=== PATIENT | female | born 1960 | race Caucasian/White ===

== ENCOUNTER 2023-08-12 18:32 | Observation (INO) | payer OTHER ==
[2023-08-12 19:05] LABS: BASOPHILS # (AUTO) 0.1 10^3/uL (0.0-0.1); BASOPHILS % (AUTO) 0.5 %; EOSINOPHILS % (AUTO) 0.3 %; HCT - HEMATOCRIT 41.6 % (37.0-47.0); HGB - HEMOGLOBIN 13.5 g/dL (12.0-16.0); LYMPHOCYTES # (AUTO) 1.4 10^3/uL (1.5-3.5); LYMPHOCYTES % (AUTO) 10.1 %; MEAN CORPUSCULAR HEMOGLOBIN 29.3 pg (27.0-31.0); MEAN CORPUSCULAR HGB CONC 32.5 g/dL (32.0-36.0); MEAN CORPUSCULAR VOLUME 90.2 fL (81.0-99.0); MEAN PLATELET VOLUME 9.4 fL (7.9-10.8); MONOCYTES # (AUTO) 0.6 10^3/uL (0.0-1.0); MONOCYTES % (AUTO) 4.6 %; NEUTROPHILS # (AUTO) 11.4 10^3/uL (1.5-6.6); NEUTROPHILS % (AUTO) 84.1 %; PLT - PLATELET COUNT 281 10^3/uL (130-450); RED BLOOD COUNT 4.61 10^6/uL (4.20-5.40); RED CELL DISTRIBUTION WIDTH 13.5 % (12.0-15.0); WHITE BLOOD COUNT 13.6 x10^3/uL (4.8-10.8)
[2023-08-12 19:23] LABS: ALBUMIN 4.4 g/dL (3.2-5.5); ALBUMIN/GLOBULIN RATIO 1.7 (1.0-2.2); BILIRUBIN,TOTAL 0.6 mg/dL (0.2-1.0); CALCIUM 9.6 mg/dL (8.5-10.3); CREATININE 0.8 mg/dL (0.6-1.3); MAGNESIUM 1.5 mg/dL (1.7-2.3); POTASSIUM 3.7 mmol/L (3.5-4.5)
[2023-08-12] MEDS ORDERED: iohexoL-300 100 ML VIAL ONE (19:31)
[2023-08-12] MEDS: HYDROmorphone 0.5 MG/0.5 ML SYRINGE IVP STA (19:32)
[2023-08-12] MEDS: SODIUM CHLORIDE 0.9% 1,000 ML IV ONE (19:32)
[2023-08-12] MEDS: ONDANSETRON 4 MG/2 ML VIAL IVP STA (19:43)
[2023-08-12] MEDS: iohexoL-300 100 ML VIAL IVP ONE (20:41)
--- NOTE | 2023-08-12 21:55 | CT Report ---
PROCEDURE: Abdomen/Pelvis W INDICATIONS: colon polyp and right ovarian cyst removal 07/11 CONTRAST: 100 ML OMNI 300 TECHNIQUE: After the administration of intravenous contrast, a CT scan of the abdomen and pelvis was performed. Images were recorded and evaluated at appropriate window settings. Reformats: coronal and sagittal. F or radiation dose reduction, the following was used: automated exposure control, adjustment of mA and /or kV according to patient size. COMPARISON: None. FINDINGS: Image quality: Diagnostic. Lower chest: Unremarkable. Liver: No solid mass. Gallbladder: Normal. Biliary tree: No intrahepatic or extrahepatic dilation, accounting for age. Spleen: No splenomegaly. Pancreas: No pancreatic ductal dilation. Adrenals: No adrenal nodule. Kidneys and ureters: No hydronephrosis. No renal cystic lesion which requires follow up. No solid mas s. Stomach, bowel and peritoneum: No gastric or small bowel dilation. No abnormal wall thickening. No pa thologic free fluid. Lymph nodes: No central or retroperitoneal adenopathy. Vessels: No infrarenal aortic aneurysm. Patent portal vein. PELVIS Reproductive organs: Unremarkable. Bladder: No abnormal wall thickening, accounting for underdistention. Pelvic lymph nodes: No pelvic adenopathy by size criteria. Bones: No aggressive osseous abnormality. Other: No significant ventral or inguinal hernia. Moderate inflammation adjacent to the appendix whic h appears also inflamed, but no periappendiceal abscess is found. IMPRESSION: Acute appendicitis without periappendiceal abscess at the right lower quadrant. Findings immediately called to the emergency room physician caring for the patient. Reviewed by: Geoffrey Ordaz MD on 08/12/2023 9:53 PM PDT Approved by: Geoffrey Ordaz MD on 08/12/2023 9:53 PM PDT Station ID: [id number]
--- NOTE | 2023-08-12 22:12 | ED Physician Documentation ---
PD HPI ABD PAIN - Stated complaint Stated Complaint: ABD PX - Chief complaint Chief Complaint: Abd Pain - Treatment prior to arrival Treatment prior to arrival: 62-year-old female presents emergency department for generalized abdominal pain. Patient recently had surgery about a month ago for a colon polyp that was removed vaginally As well as A right ovarian cyst removal. She said overall she has been doing quite well since surgery she has had no complications and today started experiencing sudden onset abdominal pain nausea vomiting. Prior to today she has been feeling overall well no fevers or chills that she is aware of. No dysuria no CVA tenderness. 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: Other - Allergies Allergies/Adverse Reactions: Allergies Allergy/AdvReac Type Severity Reaction Status Date / Time No Known Drug Allergies Allergy Verified 08/12/23 18:35 - Social History Does the pt smoke?: No Smoking Status: Never smoker Does the pt drink ETOH?: No Does the pt have substance abuse?: No - Immunizations Immunizations are current?: Yes - POLST Patient has POLST: No PD ED PE NORMAL - Vitals Vital signs reviewed: Yes - General General: Alert and oriented X 3, No acute distress, Well developed/nourished - Cardiac Cardiac: RRR - Respiratory Respiratory: No respiratory distress, Clear bilaterally - Abdomen Abdomen: Normal bowel sounds, Soft, Non distended, Other (Right upper quadrant tenderness) - Derm Derm: Normal color, Warm and dry, No rash - Extremities Extremities: No edema - Neuro Neuro: Alert and oriented X 3, picker packer 2-12 intact, No motor deficit, No sensory deficit, Normal speech - Psych Psych: Normal mood, Normal affect Results - Vitals Vitals: Vital Signs - 24 hr 08/12/23 08/12/23 08/12/23 18:35 19:15 19:33 Temperature 36.5 C 36 C L Heart Rate 60 65 64 Respiratory 16 15 16 Rate Blood Pressure 134/57 H 130/64 134/74 H O2 Saturation 99 99 100 08/12/23 21:50 Temperature Heart Rate 75 Respiratory 16 Rate Blood Pressure 132/71 H O2 Saturation 92 Oxygen O2 Source Room air - Labs Labs: Laboratory Tests 08/12/23 08/12/23 19:00 19:00 WBC 13.6 H RBC 4.61 Hgb 13.5 Hct 41.6 MCV 90.2 MCH 29.3 MCHC 32.5 RDW 13.5 Plt Count 281 MPV 9.4 Neut # (Auto) 11.4 H Lymph # (Auto) 1.4 L Jenkins # (Auto) 0.6 Eos # (Auto) 0.0 Baso # (Auto) 0.1 Absolute Nucleated RBC 0.00 Nucleated RBC % 0.0 Sodium 137 Potassium 3.7 Chloride 103 Carbon Dioxide 23 Anion Gap 11.0 BUN 19 Creatinine 0.8 Estimated GFR (MDRD) 72 L Glucose 124 H Calcium 9.6 Magnesium 1.5 L Total Bilirubin 0.6 AST 18 ALT 25 Alkaline Phosphatase 77 Total Protein 7.0 Albumin 4.4 Globulin 2.6 Albumin/Globulin Ratio 1.7 Lipase 15 - Rads (name of study) CT abdomen pelvis with contrast Relevant Findings:: Final report received, EMP independent interpretation of test, Other (Acute appendicitis without periappendiceal abscess at the right lower quadrant.) PD Medical Decision Making - ED course ED course: 62-year-old female presents emergency department for generalized abdominal pain and discomfort with nausea and vomiting. Labs are complete for further evaluation and she does have mild leukocytosis, 13.6 no electrolyte abnormalities normal kidney function with mildly suppressed magnesium at 1.5 replaced with [address] oxide. [address] abdomen pelvis was complete for further evaluation and she was found to have an acute appendicitis without periappendiceal abscess. Patient is here visiting from [place] and she said that she would like to do everything possible to avoid surgery if possible. We have started her on some Flagyl and ceftriaxone for a keep in a status I called Dr. Ridley our general surgeon who agrees that we could try to start patient on IV antibiotics overnight to see how patient does and discuss pros and cons of doing surgery or waiting on surgery tomorrow with the patient. Plan is to see how she does overnight with the antibiotics. Patient lives in [place] and said that she would love to hold off on surgery until she is able to get back to [place] on Monday or Monday but understands that if surgery needs to happen she is willing to do so. Pain was well-controlled with one-time dose of 0.5 mg Dilaudid nausea controlled with 4 mg IV Zofran. She was given 1 L of IV fluids. Report given to oncoming ER physician due to change of shift who will speak with telehospitalist Departure - Departure Disposition: 65 [facility] DC/Xfer Clinical Impression: Appendicitis, acute Forms: PCP List
[2023-08-12] MEDS ORDERED: cefTRIAXone 1 GM VIAL ONE (22:37)
[2023-08-12] MEDS: MAGNESIUM OXIDE 400 MG TABLET PO STA (22:40)
[2023-08-12] MEDS: cefTRIAXone 1 GM in SODIUM CHLORIDE 0.9% MINIBAG 100 ML IV STA (22:42)
[2023-08-12] MEDS: metroNIDAZOLE 500 MG/100 ML 500 MG/100 ML BAG IV ONE (22:42)
[2023-08-12] MEDS ORDERED: metroNIDAZOLE 500 MG/100 ML 500 MG/100 ML BAG IV SCH (23:00)
--- NOTE | 2023-08-13 01:42 | ED Physician Documentation ---
ED Addendum - Addendum Addendum: 08/13/23 01:42 Patient received a signout from outgoing CHRISTO. Please see their documentation for further detail. Care was discussed with the telemetry hospitalist service. Patient monitored carefully throughout the majority of my shift with no new or worsening symptoms. Admitted to hospital service without issue.
--- NOTE | 2023-08-13 02:25 | HISTORY & PHYSICAL EXAMINATION ---
Chief Complaint - Chief Complaint Chief Complaint: abd pain History of Present Illness - Admitted From Admitted From:: home - History Obtained From History obtained from: patient Exam Limitations: telemedicine - History of Present Illness HPI Comment/Other: Ms [place] is a 62 yo F with hx HTN. Presents to ER with c/o abd pain. Onset of pain ~1 PM, 10/10 intensity, had nausea after receiving dilaudid in ER. Pain is now well controlled, denies any ongoing nausea. Found to have appendicitis - she is hoping to defer surgery to when she goes back to [place], but plans to discuss further with surgeon. Denies fevers, chills, chest pain, shortness of breath. 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: Ovarian cysts MRSA Hx?: No - Past Surgical History /CONCESSION STAND ATTENDANT: reports: Other - POLST Patient has POLST: No Meds/Allgy - Home Medications Home Medications: Ambulatory Orders Medication Instructions Recorded Confirmed Progesterone, Micronized 100 mg PO QPM 08/12/23 08/12/23 [Prometrium] - Allergies Allergies/Adverse Reactions: Allergies Allergy/AdvReac Type Severity Reaction Status Date / Time No Known Drug Allergies Allergy Verified 08/12/23 18:35 Review of Systems - Constitutional Constitutional: denies: Fatigue, Fever, Chills, Malaise - Cardiovascular Cariovascular: denies: Chest pain - Respiratory Respiratory: denies: Cough, SOB at rest - Gastrointestinal Gastrointestinal: reports: Abdominal pain, Nausea. denies: Abdominal distention, Vomiting - Genitourinary Genitourinary: denies: Dysuria, Frequency - Integumentary Integumentary: denies: Rash - Neurological Neurological: denies: General weakness - All Other Systems All Other Systems: reports: Reviewed and negative Exam - Vital Signs Vital Signs: Vital Signs x48h Temp Pulse Resp BP Pulse Ox 08/12/23 23:00 36 C L 64 16 127/89 H 97 08/12/23 21:50 75 16 132/71 H 92 08/12/23 19:33 36 C L 64 16 134/74 H 100 08/12/23 19:15 65 15 130/64 99 08/12/23 18:35 36.5 C 60 16 134/57 H 99 Conclusion/Plan - Lab Results Lab results reviewed: Yes Fish Bones: 08/12/23 19:00 08/12/23 19:00 - Diagnostic Imaging Results Diagnostic Imaging Results: positive: Final report reviewed - Other Other Results/Comments: Assessment/Plan: Acute appendicitis -Mild leukocytosis, afebrile -No evidence of abscess on imaging -Continue IV antibiotics Ceftriaxone + Flagyl -NPO -IV fluids -Genearl surgery consultation pending HTN -Patient reports she was taken off of lisinopril a few weeks ago by her PCP because her blood pressures have been well controlled -Continue to monitor Full code DVT ppx SCDs
[2023-08-13] MEDS ORDERED: ONDANSETRON 4 MG/2 ML VIAL IVP PRN ×2 (02:28→12:33)
[2023-08-13] MEDS ORDERED: HYDROmorphone 0.5 MG/0.5 ML SYRINGE IVP PRN ×2 (02:28→12:33)
[2023-08-13] MEDS: SODIUM CHLORIDE 0.9% 1,000 ML IV SCH (03:49)
[2023-08-13] MEDS: SODIUM CHLORIDE FLUSH 0.9% 10 ML SYRINGE IVP PRN (03:51)
[2023-08-13] MEDS: metroNIDAZOLE 500 MG/100 ML 500 MG/100 ML BAG IV SCH (06:12)
[2023-08-13 09:56] LABS: HCT - HEMATOCRIT 37.4 % (37.0-47.0); HGB - HEMOGLOBIN 12.2 g/dL (12.0-16.0); MEAN CORPUSCULAR HEMOGLOBIN 29.6 pg (27.0-31.0); MEAN CORPUSCULAR HGB CONC 32.6 g/dL (32.0-36.0); MEAN CORPUSCULAR VOLUME 90.8 fL (81.0-99.0); MEAN PLATELET VOLUME 9.6 fL (7.9-10.8); RED BLOOD COUNT 4.12 10^6/uL (4.20-5.40); RED CELL DISTRIBUTION WIDTH 13.7 % (12.0-15.0); WHITE BLOOD COUNT 10.4 x10^3/uL (4.8-10.8)
[2023-08-13] MEDS: SODIUM CHLORIDE FLUSH 0.9% 10 ML SYRINGE IVP SCH (10:26)
--- NOTE | 2023-08-13 11:37 | HISTORY & PHYSICAL EXAMINATION ---
HPI - Admitted From Admitted from: ED - History Obtained From History obtained from: Patient - History of Present Illness HPI Comment/Other: 62yoF visiting from out of town, onset at 1pm yesterday of abdominal pain, initially felt to be GI upset, but persisted and migrated to the RLQ. Mild nausea, no emesis. Initially was opposed to having surgery here given she was from out of town, and so she was admitted for abx mgmt. She has remained HD normal, WBC has downtrended from 13 to 10, Pain has improved somewhat but not resolved. NPO since prior to admission to hospital. 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 - Social History Does the pt smoke?: No Smoking Status: Never smoker Does the pt drink ETOH?: No Does the pt have substance abuse?: No - POLST Patient has POLST: No Meds/Allgy - Home Medications Home Medications: Ambulatory Orders Medication Instructions Recorded Confirmed Progesterone, Micronized 100 mg PO QPM 08/12/23 08/12/23 [Prometrium] Lisinopril [Zestril] 10 mg PO DAILY 08/13/23 08/13/23 Rosuvastatin Calcium 5 mg PO DAILY 08/13/23 08/13/23 - Allergies Allergies/Adverse Reactions: Allergies Allergy/AdvReac Type Severity Reaction Status Date / Time No Known Drug Allergies Allergy Verified 08/12/23 18:35 Review of Systems - Gastrointestinal Gastrointestinal: reports: Abdominal pain, Nausea. denies: Vomiting Exam - Vital Signs Reviewed Vital Signs: Yes Vital Signs: Vital Signs x48h Temp Pulse Resp BP Pulse Ox 08/13/23 07:45 36.7 C 73 18 123/75 96 08/13/23 03:41 36.5 C 71 18 135/74 H 97 - Physical Exam General Appearance: positive: No acute distress, Alert Eyes Bilateral: positive: Normal inspection, PERRL ENT: positive: ENT inspection nml, Pharynx nml, No signs of dehydration Neck: positive: Nml inspection, Thyroid nml, No JVD, Trachea midline Respiratory: positive: Chest non-tender, No respiratory distress, Breath sounds nml Cardiovascular: positive: Regular rate & rhythm, No murmur, No gallop Peripheral Pulses: positive: 2+ Abdomen: positive: No distention, Tenderness (Focal RLQ ttp, negative rosvings sign). negative: Guarding, Rebound Back: positive: Nml inspection Skin: positive: Color nml, No rash, Warm, Dry Extremities: positive: Non-tender, Full ROM, Nml appearance Neurologic/Psychiatric: positive: Oriented x3, Mood/affect nml Results - Lab Results Lab results reviewed: Yes Fish Bones: 08/13/23 09:47 08/12/23 19:00 Other Lab Results: Lab Results x24hrs 08/13/23 08/12/23 08/12/23 Range/Units 09:47 19:00 19:00 WBC 10.4 13.6 H (4.8-10.8) x10^3/uL RBC 4.12 L 4.61 (4.20-5.40) 10^6/uL Hgb 12.2 13.5 (12.0-16.0) g/dL Hct 37.4 41.6 (37.0-47.0) % MCV 90.8 90.2 (81.0-99.0) fL MCH 29.6 29.3 (27.0-31.0) pg MCHC 32.6 32.5 (32.0-36.0) g/dL RDW 13.7 13.5 (12.0-15.0) % Plt Count 270 281 (130-450) 10^3/uL MPV 9.6 9.4 (7.9-10.8) fL Neut # (Auto) 11.4 H (1.5-6.6) 10^3/uL Lymph # (Auto) 1.4 L (1.5-3.5) 10^3/uL [place] # (Auto) 0.6 (0.0-1.0) 10^3/uL Eos # (Auto) 0.0 (0.0-0.7) 10^3/uL Baso # (Auto) 0.1 (0.0-0.1) 10^3/uL Absolute Nucleated RBC 0.00 x10^3/uL Nucleated RBC % 0.0 /100WBC Sodium 137 (135-145) mmol/L Potassium 3.7 (3.5-4.5) mmol/L Chloride 103 (101-111) mmol/L Carbon Dioxide 23 (21-32) mmol/L Anion Gap 11.0 (6-13) BUN 19 (6-20) mg/dL Creatinine 0.8 (0.6-1.3) mg/dL Estimated GFR (MDRD) 72 L (>89) Glucose 124 H (74-104) mg/dL Calcium 9.6 (8.5-10.3) mg/dL Magnesium 1.5 L (1.7-2.3) mg/dL Total Bilirubin 0.6 (0.2-1.0) mg/dL AST 18 (10-42) IU/L ALT 25 (10-60) IU/L Alkaline Phosphatase 77 (42-121) IU/L Total Protein 7.0 (6.4-8.9) g/dL Albumin 4.4 (3.2-5.5) g/dL Globulin 2.6 (2.1-4.2) g/dL Albumin/Globulin Ratio 1.7 (1.0-2.2) Lipase 15 (11-82) U/L - Diagnostic Imaging Results Diagnostic Imaging Results: positive: Read contemporaneously Diagnostic Imaging Results Comments: CT abd/pel c/w acute nonperforated appendicitis. Impression/Plan - Problem List Problem List: 62yoF with acute appendicitis. Initially admitted for abx management per patient preference as she is from out of town - was initially, and remains, HD normal and afebrile. WIth abx mgmt and pain control her WBC has gone down from 13 to 10 and pain is improved but not resolved. Discussed nature of disease, options for management with abx vs surgery and the risk of recurrence with abx along and the risks of surgery (pain, bleeding, infection/abscess, bowel resection, open surgery, need for further procedures). She understands and now desires to proceed with surgical management. To OR now for laparoscopic appendectomy Anticipate DC home tomorrow, and ability to fly home on Monday with PCM post-op follow up. Dai Ridley DO FACS General Surgeon
[2023-08-13] MEDS ORDERED: BUPIVACAINE 0.25% PF 30 ML VIAL ONE (12:14)
[2023-08-13] MEDS ORDERED: LIDOCAINE 1%-EPI 1:100000 20 ML MDV ONE (12:26)
[2023-08-13] MEDS ORDERED: ROCURONIUM 50 MG/5 ML VIAL ONE ×2 (12:28→13:39)
[2023-08-13] MEDS ORDERED: ONDANSETRON 4 MG/2 ML VIAL ONE (12:28)
[2023-08-13] MEDS ORDERED: MIDAZOLAM 2 MG/2 ML VIAL ONE (12:28)
[2023-08-13] MEDS ORDERED: fentaNYL 100 MCG/2 ML VIAL ONE ×2 (12:28→14:17)
[2023-08-13] MEDS ORDERED: KETOROLAC 30 MG/ML VIAL ONE (12:28)
[2023-08-13] MEDS ORDERED: LIDOCAINE-PF 2% 10 ML AMP SUBQ ONE (12:28)
[2023-08-13] MEDS ORDERED: PROPOFOL 200 MG/20 ML VIAL IVP ONE (12:28)
[2023-08-13] MEDS ORDERED: ePHEDrine 50 MG/ML VIAL IVP PRN (12:33)
[2023-08-13] MEDS ORDERED: MORPHINE 2 MG/ML CARPUJECT IVP PRN (12:33)
[2023-08-13] MEDS ORDERED: NALOXONE 0.4 MG/ML VIAL IVP PRN (12:33)
[2023-08-13] MEDS ORDERED: METOCLOPRAMIDE 10 MG/2 ML VIAL IVP PRN (12:33)
[2023-08-13] MEDS ORDERED: ATROPINE ABBOJECT 1 MG/10 ML SYRINGE IVP PRN (12:33)
--- NOTE | 2023-08-13 12:33 | ANESTHESIA ---
Pre-Anesthesia VS, & Labs - Diagnosis appendicitis - Procedure lap appy Vital Signs: Temp Pulse Resp BP Pulse Ox O2 Flow Rate 37 C 70 20 147/79 H 94 08/13/23 12:18 08/13/23 12:18 08/13/23 12:18 08/13/23 12:18 08/13/23 12:18 Height: 5 ft 4 in Weight (kg): 81.5 kg Body Mass Index: 30.8 BMI Classification: Obese - NPO >8 hours - Is Patient ?: No - Lab Results Current Lab Results: Laboratory Tests 08/13/23 09:47: WBC 10.4, RBC 4.12 L, Hgb 12.2, Hct 37.4, MCV 90.8, MCH 29.6, MCHC 32.6, RDW 13.7, Plt Count 270, MPV 9.6 08/12/23 19:00: Sodium 137, Potassium 3.7, Chloride 103, Carbon Dioxide 23, Anion Gap 11.0, BUN 19, Creatinine 0.8, Estimated GFR (MDRD) 72 L, Glucose 124 H , Calcium 9.6, Magnesium 1.5 L, Total Bilirubin 0.6, AST 18, ALT 25, Alkaline Phosphatase 77, Total Protein 7.0, Albumin 4.4, Globulin 2.6, Albumin/Globulin Ratio 1.7, Lipase 15 08/12/23 19:00: WBC 13.6 H, RBC 4.61, Hgb 13.5, Hct 41.6, MCV 90.2, MCH 29.3, MCHC 32.5, RDW 13.5, Plt Count 281, MPV 9.4, Neut # (Auto) 11.4 H, Lymph # (Auto) 1.4 L, [place] # (Auto) 0.6, Eos # (Auto) 0.0, Baso # (Auto) 0.1, Absolute Nucleated RBC 0.00, Nucleated RBC % 0.0 Fish Bones: 08/13/23 09:47 08/12/23 19:00 Home Medications and Allergies Home Medications: Ambulatory Orders Progesterone, Micronized [Prometrium] 100 mg PO QPM 08/12/23 Lisinopril [Zestril] 10 mg PO DAILY 08/13/23 Rosuvastatin Calcium 5 mg PO DAILY 08/13/23 Active Medications Hydromorphone HCl (Hydromorphone 0.5 Mg/0.5 Ml Syringe) 0.5 mg IVP Q2H PRN PRN Reason: Pain 8 to 10 Metronidazole (Flagyl 500 Mg/100 Ml) 500 mg in 100 mls @ 100 mls/hr IV Q8H [facility] Last Infusion: 08/13/23 07:15 Dose: Infused Sodium Chloride (Normal Saline 0.9%) 1,000 mls @ 100 mls/hr IV .Q10H [facility] Last Admin: 08/13/23 03:49 Dose: 100 mls/hr Ceftriaxone Sodium 1 gm/ (Sodium Chloride) 100 mls @ 200 mls/hr IV DAILY [facility] Ondansetron HCl (Ondansetron 4 Mg/2 Ml Vial) 4 mg IVP Q6HR PRN PRN Reason: Nausea / Vomiting Patient Own Med [ Prometrium 100 Mg Capsule] 1 each PO QPM [facility] Sodium Chloride (Sodium Chloride Flush 0.9% 10 Ml Syringe) 10 ml IVP PRN PRN PRN Reason: NEEDED PER PROVIDER ORDERS Last Admin: 08/13/23 03:51 Dose: 10 ml Sodium Chloride (Sodium Chloride Flush 0.9% 10 Ml Syringe) 10 ml IVP 0100,0900,1700 [facility] Last Admin: 08/13/23 10:26 Dose: Not Given Progesterone, Micronized [Prometrium] 100 mg PO QPM 08/12/23 Lisinopril [Zestril] 10 mg PO DAILY 08/13/23 Rosuvastatin Calcium 5 mg PO DAILY 08/13/23 Allergies/Adverse Reactions: Allergies Allergy/AdvReac Type Severity Reaction Status Date / Time No Known Drug Allergies Allergy Verified 08/12/23 18:35 Anes History & Medical History - Anesthetic History Anesthesia Complications: reports: No previous complications Family history of Anesthesia Complications: Denies Family history of Malignant Hyperthermia: Denies - Medical History Cardiovascular: reports: Hypertension, High cholesterol Pulmonary: reports: None Gastrointestinal: reports: None Urinary: reports: None Neuro: reports: None Musculoskeletal: reports: None Endocrine/Autoimmune: reports: None Blood Disorders: reports: None Skin: reports: None Smoking Status: Never smoker Psychosocial: reports: No issues indicated History of Cancer?: Yes (skin) - Surgical History Eyes Ears Nose Throat (EENT): reports: Cataracts Gynecologic: reports: Other (vaginal polyp and ovarian cyst(?) resected via vaginal approach) Dermatologic: reports: Skin cancer surgery (RIght anterior chest) Exam General: Alert, Oriented x3, Cooperative Dental: WNL Mouth Openin Fingerbreadth Neck Mobility: Normal Mallampati classification: II Thyromental Distance: 4-6 cm Respiratory: Lungs clear Cardiovascular: Regular rate Plan Anesthesia Type: General Consent for Procedure(s) Verified and Reviewed: Yes Code Status: Attempt Resuscitation ASA classification: 2-Mild systemic disease Is this case an emergency?: Yes
[2023-08-13] MEDS ORDERED: LACTATED RINGERS 1,000 ML IV SCH (13:00)
[2023-08-13] MEDS: LIDOCAINE 1%-EPI 1:100000 20 ML MDV SUBQ ONE ×2 (13:15)
[2023-08-13] MEDS: BUPIVACAINE 0.25% PF 30 ML VIAL SUBQ ONE ×2 (13:15)
[2023-08-13] MEDS ORDERED: GLYCOPYRROLATE 1 MG/5 ML VIAL ONE (13:25)
[2023-08-13] MEDS ORDERED: ACETAMINOPHEN 1,000 MG/100 ML 1,000 MG/100 ML BAG IV ONE (13:29)
--- NOTE | 2023-08-13 13:37 | PHARMACY PROGRESS NOTE ---
- Best Possible Medication History Admit Date and Time: 08/13/23 0228 Processed by: Pharmacy Medications reviewed in ED?: Yes Medication History completed: Yes Patient Interview: Pt unable to participate Secondary Source(s): Insurance records As the person ultimately responsible for medication therapy, providers are able to order a medication from an existing home medication list in [facility] via the "Reconcile Routine" prior to Confirmation of that medication by emotional support teacher. Such practice is discouraged except when the physician, in their clinical judgment, deems that a medical need exists for a medication without regard to previous use.
[2023-08-13] MEDS ORDERED: SUGAMMADEX 200 MG/2 ML VIAL IVP ONE (13:54)
[2023-08-13] MEDS: LACTATED RINGERS 300 ML IV ONE (14:09)
[2023-08-13] MEDS: fentaNYL 100 MCG/2 ML VIAL IVP PRN (14:15)
--- NOTE | 2023-08-13 14:17 | OPERATIVE REPORT ---
Operative Report - General Admit Date: 08/13/23 Planned Procedure: laparoscopic appendectomy Pre-Op Diagnosis: acute appendicitis Procedure Performed: laparoscopic appendectomy Post Op Diagnosis: acute uncomplicated appendicitis - Procedure Note Primary Surgeon: Dai Ridley DO Anesthesia Provider: Eleonora Schmidt Anesthesia Technique: General ET tube Pathology: appendix IV Fluids (mL): 700 Estimated Blood Loss (mL): 5 Indications: [id number] WITH acute appendicitis Findings: acutely inflamed and dilated appendix without rupture, small amount of purulent fluid in RLQ Complications: none - Other Other Information/Narrative: The patient was brought to the operating room with universal protocol observed throughout. SHe was placed supine on the operating room table with the left arm tucked. A Cotto was not placed. General anesthesia with endotracheal tube was induced by the anesthesia service. A timeout was performed with all members of the team being in agreement. Local anesthetic of 1% lidocaine with epinephrine mixed with Marcaine plain was injected into the infraumbilical skin. A transverse skin incision was made sharply. Blunt dissection down to the level of the fascia was performed. The umbilical stalk was elevated and the fascia was incised sharply in a vertical orientation and the peritoneal cavity was entered bluntly with a Lisette clamp. A 12 mm balloon trocar was placed. The abdomen was insufflated with CO2 gas to a pressure of 15 mmHg which the patient tolerated well. The laparoscope was i nserted and visual inspection revealed no evidence of injury upon entry. Two additional 5mm trocars were placed under direct visualization: one in the left lower quadrant, one in the suprapubic position. Graspers were introduced into the abdomen. The appendix was indurated and inflamed with thin adhesions to the abdominal side wall. Adhesions were taken down with blunt dissection. The appendix was elevated and a window through the mesentery at the base of the appendix was made bluntly, through which the appendiceal base was divided with a 30 mm blue load staple line. The mesoappendix was divided with 30mm white load staple lines x2. The appendix was placed into an Endo Catch bag and extracted through the umbilical port. The staple line was inspected and noted to be intact and hemostatic. Purulent fluid was suctioned from the RLQ. The trocars were removed under direct visualization. The umbilical fascia was closed with an 0 Vicryl [id number] suture. The umbilical wound was irrigated with clean normal saline. Hemostasis in the wound was achieved with Bovie electrocautery and all skin incisions were closed with subcuticular 4-0 Monocryl suture. A dressing of Steri-Strips gauze and Tegaderm was applied. The patient was extubated and awoken from general anesthesia. There were no complications. All sponge needle counts were correct. The patient was transferred to the PACU in stable condition. Dai Ridley DO, FACS General Surgeon
[2023-08-13] MEDS ORDERED: oxyCODONE 5 MG TABLET PO PRN (14:19)
--- NOTE | 2023-08-13 14:30 | ANESTHESIA POST OP EVALUATION ---
Anesthesia Post Eval - Post Anesthesia Eval Vitals: Last Vital Signs Temp 37.4 C 08/13/23 14:10 Pulse 65 08/13/23 14:25 Resp 15 08/13/23 14:25 BP 117/66 08/13/23 14:25 Pulse Ox 98 08/13/23 14:25 O2 Flow Rate CV Function Including HR & BP: Stable Pain Control: Satisfactory Nausea & Vomiting: Negative Mental Status: Baseline Respiratory Status: Airway Patent Hydration Status: Satisfactory Anesthesia Complications: None
[2023-08-13] MEDS ORDERED: ACETAMINOPHEN 500 MG TABLET PO SCH (15:00)
[2023-08-13] MEDS: IBUPROFEN 600 MG TABLET PO SCH (15:00)
[2023-08-13] MEDS: ACETAMINOPHEN 500 MG TABLET PO SCH (17:15)
[2023-08-13] MEDS: PROMETRIUM 100 MG PO SCH (20:58)
[2023-08-13] MEDS ORDERED: cefTRIAXone 1 GM in SODIUM CHLORIDE 0.9% MINIBAG 100 ML IV SCH (22:00)
[2023-08-14] MEDS: IBUPROFEN 600 MG TABLET PO SCH (00:10)
[2023-08-14 08:47] VITALS: BP 146/75; O2SAT 93
--- NOTE | 2023-08-14 09:20 | DISCHARGE SUMMARY ---
"Discharge Summary Admit Date: 08/13/23 Discharge Date: 08/14/23 Discharging Provider: Dai Ridley DO Code Status: Attempt Resuscitation Condition at Discharge: Good Discharge Disposition: 01 Home, Self Care - DIAGNOSES Admission Diagnoses: acute appendicitis Discharge Diagnoses with Status of Each Condition: acute uncomplicated appendicitis - resolved - CONSULTS | PROCEDURES Procedures: laparoscopic appendectomy - HOSPITAL COURSE Hospital Course: The patient was admitted from the ED with acute appendicitis, to the medicine service for antibiotic only management as per the patients wishes, as she is traveling from out of town and did not want surgery locally. At the time of admission she was HD normal, afebrile, without radiographic evidence of perforation. She remained HD normal and afebrile on antibiotics and her WBC normalized from 13 to 10, however she then changed her mind and opted for surgical management. On [id number] she was taken to the OR for uncomplicated laparoscopic appendectomy which confirmed the diagnosis of nonperforated appendicitis. She was observed postoperatively with good pain control, tolerating regular diet, ambulating and voiding without issue, and remaining HD normal. She was discharged on POD1, with plan to travel home to [place] on POD2. SHe will have a two week follow up appointment with her PCM, who may refer to a local general surgeon as needed for any unexpected postoperative complications. - ALLERGIES Allergies/Adverse Reactions: Allergies Allergy/AdvReac Type Severity Reaction Status Date / Time No Known Drug Allergies Allergy Verified 08/12/23 18:35 - MEDICATIONS Home Medications: Ambulatory Orders Medication Instructions Recorded Confirmed Progesterone, Micronized 100 mg PO QPM 08/12/23 08/12/23 [Prometrium] Acetaminophen [Tylenol] 500 mg PO Q4-6H PRN 30 Days #30 08/13/23 tablet Ibuprofen [Motrin] 600 mg PO Q6H PRN #30 tab 08/13/23 Lisinopril [Zestril] 10 mg PO DAILY 08/13/23 08/13/23 Rosuvastatin Calcium 5 mg PO DAILY 08/13/23 08/13/23 oxyCODONE [Roxicodone] 5 mg PO Q4-6H PRN 7 Days #5 tablet 08/13/23 - PHYSICAL EXAM AT DISCHARGE General Appearance: positive: No acute distress, Alert Eyes Bilateral: positive: Normal inspection ENT: positive: ENT inspection nml Neck: positive: Nml inspection Respiratory: positive: Chest non-tender, No respiratory distress Cardiovascular: positive: Regular rate & rhythm Abdomen: positive: Tenderness (periincisional, appropriate ) Skin: positive: Color nml Extremities: positive: Non-tender Neurologic/Psychiatric: positive: Oriented x3 - LABS Result Diagrams: 08/13/23 09:47 08/12/23 19:00 - FOLLOW UP Follow Up: 2 weeks, PCM in [place] - TIME SPENT Time Spent in Discharge (Minutes): 20"
== END 2023-08-14 09:40 | disposition home or self-care (01) ==
LOC: ED 18:32 → MS2 08-13 02:28
PROVIDERS: ADMIT Surgery; ATTEND Surgery
PROC: 0DTJ4ZZ Resection of Appendix, Percutaneous Endoscopic Approach (ICD-10-PCS; principal; 2023-08-13 12:30)
DX: K35.80 Unspecified acute appendicitis (principal); I10 Essential (primary) hypertension; E78.00 Pure hypercholesterolemia, unspecified; D72.829 Elevated white blood cell count, unspecified; E66.9 Obesity, unspecified; Z68.30 Body mass index [BMI] 30.0-30.9, adult
CPT/HCPCS: 36415; 44970; 74177; 80053; 83690; 83735; 85025; 85027; 87040; 96365; 96367; 96368; 96375; 99284; 99285; A9270; G0378; J0131; J1170; J7120; Q9967; 81001; 81003; 87086